=== PATIENT | male | born 2000 | race Caucasian/White ===

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

== ENCOUNTER 2019-02-28 20:08 | Emergency (ER) | payer OTHER ==
[~2019-02-28] VITALS: Ht 167.6 cm; Wt 54.7 kg
[2019-02-28 20:14] VITALS: BP 116/79
[2019-02-28] MEDS ORDERED: LIDOCAINE-MPF 1%, 5ML ONE (20:30)
[2019-02-28] MEDS ORDERED: LIDOCAINE 1%, 10ML INFIL ONE (20:30)
--- NOTE | 2019-02-28 20:46 | NUR ---
LIDOCAINE 1% IN 5ML VIAL GIVEN TO PROVIDER FOR ADMINISTRATION
== END 2019-02-28 21:04 | disposition home or self-care (01) ==
LOC: ED 21:02
DX: S41.111A Laceration without foreign body of right upper arm, initial encounter (principal); F12.10 Cannabis abuse, uncomplicated; X58.XXXA Exposure to other specified factors, initial encounter; Y93.89 Activity, other specified; Y92.89 Other specified places as the place of occurrence of the external cause; Y99.0 Civilian activity done for income or pay; Z72.89 Other problems related to lifestyle
CPT/HCPCS: 12032; 99284

== ENCOUNTER 2019-03-07 13:50 | Emergency (ER) | payer OTHER ==
[~2019-03-07] VITALS: Ht 175.3 cm; Wt 54.5 kg
[2019-03-07 14:17] VITALS: BP 115/70
== END 2019-03-07 14:52 | disposition home or self-care (01) ==
LOC: ED 14:45
DX: S41.111D Laceration without foreign body of right upper arm, subsequent encounter (principal); W26.9XXD Contact with unspecified sharp object(s), subsequent encounter
CPT/HCPCS: 99281

== ENCOUNTER 2019-04-23 15:26 | Emergency (ER) | payer MEDICAID, OTHER ==
[~2019-04-23] VITALS: Ht 175.3 cm; Wt 52.0 kg
[2019-04-23 16:02] VITALS: BP 116/76
--- NOTE | 2019-04-23 16:42 | NUR ---
PT STATES HERE WITH C/O ABDOMINAL PAIN X 8 DAYS WITH VOMITTING. PT AAO X 4, NAD, ROOM AIR, CALL LIGHT WITHIN REACH. SIDERAIL X [address]
[2019-04-23 16:54] LABS: BASOPHILS # (AUTO) 0.06 x10^3/uL (0-0.3); BASOPHILS % (AUTO) 1 % (0-1); EOSINOPHILS # (AUTO) 0.05 x10^3/uL (0-0.8); EOSINOPHILS % (AUTO) 1 % (1-7); LYMPHOCYTES # (AUTO) 3.43 x10^3/uL (1-6.1); LYMPHOCYTES % (AUTO) 37 % (22-44); MD NO; MEAN CORPUSCULAR HEMOGLOBIN 31.2 pg (27.5-34.5); MEAN CORPUSCULAR HGB CONC 33.8 g/dL (33.2-36.2); MEAN CORPUSCULAR VOLUME 92.3 fL (81-97); MEAN PLATELET VOLUME 6.7 fL (7.4-10.4); MONOCYTES # (AUTO) 0.79 x10^3/uL (0-1.4); MONOCYTES % (AUTO) 8 % (2-9); NEUTROPHILS # (AUTO) 5.02 x10^3/uL (1.8-8.0); NEUTROPHILS % (AUTO) 54 % (42-75); PLATELET COUNT 316 x10^3/uL (130-400); RED BLOOD COUNT 5.49 x10^6/uL (4.38-5.82); RED CELL DISTRIBUTION WIDTH 13.2 % (9.4-14.8)
[2019-04-23 16:59] LABS: ALANINE AMINOTRANSFERASE 23 U/L (12-78); ANION GAP 8 mmol/L (5-15); CALCIUM 9.7 mg/dL (8.5-10.1); CHLORIDE 107 mmol/L (98-107); CREATININE 1.19 mg/dL (0.7-1.3)
[2019-04-23] MEDS ORDERED: ONDANSETRON ODT 4 MG PO ONE (17:00)
[2019-04-23] MEDS ORDERED: MAALOX/HYOSCYAMINE/LIDOCAINE 45 ML BTL PO ONE (17:00)
[2019-04-23 17:01] LABS: ALKALINE PHOSPHATASE 58 U/L (45-117); BILIRUBIN,TOTAL 1.2 mg/dL (0.2-1.0); TOTAL PROTEIN 8.8 g/dL (6.4-8.2)
[2019-04-23] MEDS ORDERED: ONDANSETRON ODT 4 MG ONE (17:24)
[2019-04-23] MEDS ORDERED: MAALOX/HYOSCYAMINE/LIDOCAINE 45 ML BTL ONE (17:25)
--- NOTE | 2019-04-23 17:26 | NUR ---
PT MEDICATED PER ORDERS.
[2019-04-23 17:53] LABS: MICROSCOPIC INDICATED
[2019-04-23 18:03] LABS: CULTURE INDICATED? NO
--- NOTE | 2019-04-23 18:47 | NUR ---
Patient/Caregiver given discharge instructions and they have confirmed that they understand the instructions. Patient ambulatory with steady gait.
== END 2019-04-23 18:50 | disposition home or self-care (01) ==
LOC: ED 18:35
DX: K29.00 Acute gastritis without bleeding (principal); R11.2 Nausea with vomiting, unspecified
CPT/HCPCS: 36415; 74021; 80053; 81001; 83690; 85025; 99284; Q0162